=== PATIENT | male | born 1965 | race Caucasian/White ===

== ENCOUNTER 2019-09-22 12:42 | Outpatient (CLI) | payer BC ==
--- NOTE | 2019-09-22 13:08 | RAD ---
EXAM: 3 views of the lumbosacral spine HISTORY: Low back pain COMPARISON: None FINDINGS: 3 views of the lumbosacral spine shows normal height and alignment of the vertebral bodies and intervertebral discs without fracture or subluxation. Posterior facet arthrosis is seen in the lower lumbar sacral spine. The patient has had laminectomies at L5. The sacroiliac joints are unremarkable. IMPRESSION: Degenerative changes of lumbar spine without acute osseous abnormality.
== END 2019-09-22 12:43 | disposition home or self-care (01) ==
LOC: BURRAD 12:42
PROVIDERS: ATTEND Nurse Practitioner Family
DX: M48.062 Spinal stenosis, lumbar region with neurogenic claudication (principal); M47.816 Spondylosis without myelopathy or radiculopathy, lumbar region
CPT/HCPCS: 72100